=== PATIENT | female | born 1940 | race Caucasian/White ===

== ENCOUNTER 2016-04-20 10:06 | Day surgery (SDC) | payer OTHER ==
[~2016-04-20] VITALS: Ht 165.1 cm; Wt 70.2 kg
[~2016-04-20 10:06] MED LIST: ADVAIR 500/501 DISK IH; ADVAIR IH; ATROVENT 00.5 MG/2.5 IH; B COMPLETE1 EACH PO; B COMPLEX #11 EACH PO; B-COMPLEX-VITA1 EACH PO; BALANCED B PO; BENICAR HCT 201 EACH PO; BENICAR HCT PO; BENICAR HCT1 TABLET PO; BENICAR20 MG PO; BENICAR5 MG PO; BROVANA15 MCG/2 M IH; BUDESONIDE0.5 MG/2 M IH; Bactrim,Septra DS 80 PO; CALCARB 600 W-1 EACH PO; CELEBREX200 MG PO; CENTRAVITES 501 EACH PO; CENTRUM SILV1 TABLE1 PO; CLEOCIN300 MG PO; COQ-1050 MG PO; COZAAR25 MG PO; DAILY VITAMIN1 EAC8 PO; DALIRESP500 MCG PO; DIAZEPAM2 MG PO; FENOFIBRATE160 M1 PO; FENOFIBRATE200 M1 PO; FLAGYL500 MG PO; FLONASE16 G1 BOTH NARES; FLUCONAZOLE100 MG PO; FLUTICASONE PRO16 GM ALT NARES; Fenofibrate PO; GABAPENTIN100 MG PO; GUAIFENESI100 MG/5 M PO; HYDROCODON-ACE1 EA11 PO; HYDROCODON-ACE1 EAC7 PO; LEVOFLOXACIN750 MG PO; LEXAPRO10 MG PO; LEXAPRO20 MG PO; LIDODERM 5% P1 PATCH TD; LOFIBRA200 MG PO; MEGARED OMEGA-1 EAC1 PO; MELOXICAM15 MG PO; METRONIDAZOLE500 MG PO; MOBIC7.5 MG PO; MULTIVITAMIN1 EAC2 PO; NEURONTIN100 MG PO; NICOTINE PATCH1 EAC2 TD; NORCO 5/3251 TABLET PO; Osteo-Biflex,Flex-A- PO; Oyst-Cal D, Oscal W/ PO; PRAVASTATIN SOD40 MG PO; PREDNISONE10 MG PO; PREDNISONE20 MG PO; PROAIR HFA8.5 GM IH; PROBIOTIC1 EAC1 PO; PROBIOTIC1 EAC2 PO; PROVENTIL,2.5 MG/3 M IH; PULMICORT0.5 MG/21 IH; RED YEAST RICE600 M1 PO; SKELAXIN400 M1 PO; SLOW K PO; SPIRIVA1 INHALATI IH; SUPER B COM1 CAPSULE PO; SYSTANE BALANCE10 ML BOTH EYES; Tylenol Regular Stre PO; VALIUM2 MG PO; VENTOLIN HFA18 GM IH; VICODIN 5-3001 EACH PO; VITAMIN D1000 INTUN PO; VITAMIN D31000 UNI2 PO; Valium PO; prednisone
== END 2016-04-20 12:40 | disposition home or self-care (01) ==
LOC: PAIN 10:06 → SDC 10:45 → PAIN 10:45
PROC: 3E0U33Z Introduction of Anti-inflammatory into Joints, Percutaneous Approach (ICD-10-PCS; principal; 2016-04-20)
PROC: 3E0T3BZ Introduction of Anesthetic Agent into Peripheral Nerves and Plexi, Percutaneous Approach (ICD-10-PCS; principal; 2016-04-20)
DX: G58.8 Other specified mononeuropathies (principal); M79.642 Pain in left hand; R07.81 Pleurodynia; M54.5 Low back pain; I10 Essential (primary) hypertension; F41.1 Generalized anxiety disorder; R01.1 Cardiac murmur, unspecified; K21.9 Gastro-esophageal reflux disease without esophagitis; J44.9 Chronic obstructive pulmonary disease, unspecified
CPT/HCPCS: J1030; J3010; S0020

== ENCOUNTER 2016-06-20 11:14 | Emergency (ER) | payer OTHER ==
[~2016-06-20] VITALS: Ht 165.1 cm; Wt 74.0 kg
[2016-06-20] MEDS ORDERED: PROTONIX40 MG PO (16:39)
[2016-06-20 16:45] VITALS: BP 131/64
[2016-06-24] MEDS ORDERED: BREO ELLIPTA I1 EACH IH (12:08)
[2016-06-24] MEDS ORDERED: CO Q10 PO (12:08)
[2016-06-24] MEDS ORDERED: VITRON-C TABLE1 EACH PO (12:09)
[2016-06-24] MEDS ORDERED: INCRUSE ELLI62.5 MCG IH (12:09)
== END 2016-06-20 16:49 | disposition home or self-care (01) ==
LOC: EME 11:14
DX: R13.10 Dysphagia, unspecified (principal); R07.89 Other chest pain; Z99.81 Dependence on supplemental oxygen; Z88.0 Allergy status to penicillin; Z88.6 Allergy status to analgesic agent; Z88.1 Allergy status to other antibiotic agents
CPT/HCPCS: 74220; 99281; 99284

== ENCOUNTER 2016-08-05 13:51 | Emergency (ER) | payer OTHER ==
[~2016-08-05] VITALS: Ht 165.1 cm; Wt 73.6 kg
[~2016-08-05 13:51] MED LIST changes: +BREO ELLIPTA I1 EACH IH; +CO Q10 PO; +INCRUSE ELLI62.5 MCG IH; +PROTONIX40 MG PO; +VITRON-C TABLE1 EACH PO
[2016-08-05 15:15] LABS: CHLORIDE 102 mEq/L (99-109); POTASSIUM 3.9 mEq/L (3.7-5.4); SODIUM 140 mEq/L (136-147)
[2016-08-05 15:17] LABS: GLUCOSE 138 mg/dL (70-99)
[2016-08-05 15:19] LABS: ANION GAP 11 MEQ/L (2-14); HEMATOCRIT 41.8 % (36.0-46.0); MCH 27.1 PG (29.0-34.0); MCHC 31.6 G/DL (30.0-36.0); MCV 85.8 FL (83-99); MEAN PLAT.VOLUME 8.2 uM^3 (9.5-12.4); PLATELET COUNT 441 K/uL (156-360); RBC DIS.WIDTH-CV 12.9 % (11.8-14.6); RED BLOOD COUNT 4.87 M/uL (3.80-5.20); WHITE BLOOD COUNT 9.5 K/uL (4.1-10.2)
[2016-08-05 15:21] LABS: GFR ESTIMATE (CALCULATED) > 59 mL/min/
[2016-08-05 15:22] LABS: UREA NITROGEN (BUN) 16 mg/dL (9-23)
[2016-08-05] MEDS ORDERED: BREO ELLIPTA 21 EACH IH (17:14)
[2016-08-05] MEDS ORDERED: INCRUSE ELLI62.5 MCG IH (17:14)
[2016-08-05] MEDS ORDERED: PROVENTIL,2.5 MG/0.5 IH (17:15)
[2016-08-05] MEDS ORDERED: COZAAR100 MG PO (17:15)
[2016-08-05] MEDS ORDERED: FLONASE SENSIM9.9 ML BOTH NARES (17:15)
[2016-08-05] MEDS ORDERED: ZAFIRLUKAST20 M1 PO (17:16)
[2016-08-05] MEDS ORDERED: LEXAPRO10 MG PO (17:16)
[2016-08-05] MEDS ORDERED: HYDROCODON-ACE1 EAC7 PO (17:17)
[2016-08-05] MEDS ORDERED: VITAMIN D-32000 UNI2 PO (17:17)
[2016-08-05] MEDS ORDERED: SUPER B-50 COM1 EAC1 PO (17:17)
[2016-08-05] MEDS ORDERED: RED YEAST RICE600 MG PO (17:18)
[2016-08-05] MEDS ORDERED: VITRON-C TABLE1 EACH PO (17:18)
[2016-08-05] MEDS ORDERED: CO Q-10100 MG PO (17:18)
[2016-08-05] MEDS ORDERED: DIAZEPAM2 MG PO (17:19)
[2016-08-05] MEDS ORDERED: OXYGEN MC (17:19)
[2016-08-05] MEDS ORDERED: PROLIA60 MG/1 ML SC (17:19)
[2016-08-05 20:58] LABS: TROP-I INTERPRETATION NEGATIVE; TROPONIN-I < 0.01 ng/mL (0.0-0.30)
[2016-08-05] MEDS ORDERED: HYDROXYZINE HCL10 MG PO (21:43)
[2016-08-05 21:56] VITALS: BP 147/75
[2016-08-09] MEDS ORDERED: VENTOLIN HFA18 GM IH (13:42)
== END 2016-08-05 21:58 | disposition home or self-care (01) ==
LOC: EME 13:51
DX: R06.02 Shortness of breath (principal); R21 Rash and other nonspecific skin eruption; L29.9 Pruritus, unspecified; J44.9 Chronic obstructive pulmonary disease, unspecified; Z87.891 Personal history of nicotine dependence; Z88.6 Allergy status to analgesic agent; Z88.2 Allergy status to sulfonamides; Z88.1 Allergy status to other antibiotic agents
CPT/HCPCS: 71020; 80048; 83880; 84484; 85027; 93005; 94640; 94640 76; 99281; 99284

== ENCOUNTER 2016-08-10 14:14 | Day surgery (SDC) | payer OTHER ==
[~2016-08-10] VITALS: Ht 165.1 cm; Wt 73.1 kg
[~2016-08-10 14:14] MED LIST changes: +BREO ELLIPTA 21 EACH IH; +CO Q-10100 MG PO; +COZAAR100 MG PO; +FLONASE SENSIM9.9 ML BOTH NARES; +HYDROXYZINE HCL10 MG PO; +OXYGEN MC; +PROLIA60 MG/1 ML SC; +PROVENTIL,2.5 MG/0.5 IH; +RED YEAST RICE600 MG PO; +SUPER B-50 COM1 EAC1 PO; +VITAMIN D-32000 UNI2 PO; +ZAFIRLUKAST20 M1 PO
== END 2016-08-10 16:08 | disposition home or self-care (01) ==
LOC: PAIN 14:14 → SDC 14:45 → PAIN 15:15 → CATH 15:15 → PAIN 16:08
DX: G58.8 Other specified mononeuropathies (principal); J44.9 Chronic obstructive pulmonary disease, unspecified; J45.909 Unspecified asthma, uncomplicated; I10 Essential (primary) hypertension; K21.9 Gastro-esophageal reflux disease without esophagitis; D64.9 Anemia, unspecified; M19.042 Primary osteoarthritis, left hand; Z88.2 Allergy status to sulfonamides; Z88.0 Allergy status to penicillin; Z87.891 Personal history of nicotine dependence; Z79.891 Long term (current) use of opiate analgesic
CPT/HCPCS: J1030; J3010; S0020